=== PATIENT | female | born 1975 | race Caucasian/White ===

== ENCOUNTER 2021-11-20 12:25 | Inpatient (IN) | payer SELFPAY ==
[2021-11-20] VITALS (16 sets, daily range): BP systolic 91–143; BP diastolic 58–89
[~2021-11-20] VITALS: Ht 165.1 cm; Wt 47.9 kg
--- NOTE | 2021-11-20 12:26 | NUR ---
BIBRA81 FROM STREETS, FOUND UNRESPONSIVE, NARCAN 8MG TOTAL GIVEN SUPERVISING BROKER. PLACED ON BED UNRESPONSIVE TO VERBAL AND PAINFUL STIMULI, SATURATING AT 98% WITH 4LIT O2
[2021-11-20] MEDS ORDERED: NALOXONE PREFILLED SYRINGE 2 MG/2 ML SYRINGE ONE (12:32)
--- NOTE | 2021-11-20 12:32 | NUR ---
NARCAN 4MG IV GIVEN- PATIENT STILL NOT RESPONDING TO VERBAL AND PAINFUL STIMULI
--- NOTE | 2021-11-20 12:32 | NUR ---
ACCU CHECK- LOW DEXTROSE 50% 50MLLS IV GIVEN
[2021-11-20] MEDS ORDERED: DEXTROSE 50%-WATER 50 ML DISP.SYRIN ONE ×2 (12:37→14:05)
[2021-11-20] MEDS ORDERED: PROPOFOL 0 ML ONE (12:52)
[2021-11-20] MEDS ORDERED: DEXTROSE 50%-WATER 50 ML DISP.SYRIN IV ONE (13:00)
[2021-11-20] MEDS ORDERED: NALOXONE HCL 0.4 MG/ML AMPUL IV ONE (13:00)
--- NOTE | 2021-11-20 13:00 | NUR ---
STARTED O PROPOFOL INF. AT 5MCG/KG/MIN BP-142/105, WI-66, SATS-100% WILL TITRATE ACCORDINGLY PER RASS.
--- NOTE | 2021-11-20 13:00 | NUR ---
PATIENT INTUBATED BY DR GARDNER WITH ETOMIDATE 15MG AND SUCC. 60MG, ET TUBE 7.0 AT 23LIP. TRANSACTION ADVISORY SERVICES MANAGER AT BEDSIDE ATTACHED TO VENTILATOR WITH SETTING A/C VC FIO2-30, VT-450, RATE-18, PEEP-5 SATURATING AT 100%
--- NOTE | 2021-11-20 13:00 | NUR ---
Jeanna livingston in EDM - 11/20/21 at 1637 by TERESA COMENCED ON PROPOFOL INF. AT 5MCG/KG/MIN BP-142/105
--- NOTE | 2021-11-20 13:15 | NUR ---
X-RAY TECH AT BEDSIDE
--- NOTE | 2021-11-20 13:24 | NUR ---
RT PT CAME IN FOR DRUG OD, AIRWAY PROTECTION INTUBATED BY DR GARDNER 7.0 SECURED AT 23CM PLACED ON [facility] AC 18 450 +5 50% XRAY SHOWS 4CM AWAY FROM MAGDIEL SX THIN SCANT AMOUNT OF SECRETIONS VENT PLUGGED IN RED OUTLET WILL CONT TO MONITOR ABG WILL BE DONE 1 HR POST Addendum: 11/20/21 at 1326 by NICOLE GARCIA RT Amended: Links added.
--- NOTE | 2021-11-20 13:49 | NUR ---
BED ASSIGNED. ICU 258. ADMITTING AWARE.
[2021-11-20 14:08] LABS: BASOPHILS % (AUTO) 0.2 % (0.0-2.0); HEMATOCRIT 41 % (33-45); HEMOGLOBIN 13.3 g/dL (11.5-14.8); LYMPHOCYTES # (AUTO) 0.9 K/uL (0.8-4.8); LYMPHOCYTES % (AUTO) 11.3 % (20.0-44.0); MEAN CORPUSCULAR HGB CONC 33 g/dl (31.0-36.0); MEAN CORPUSCULAR VOLUME 85 fL (82-100); MONOCYTES # (AUTO) 0.4 K/uL (0.1-1.30); MONOCYTES % (AUTO) 4.4 % (2.0-12.0); NEUTROPHILS % (AUTO) 84.1 % (43.0-81.0); PLATELET COUNT (AUTO) 339 K/uL (150-450); RED BLOOD CELL COUNT(AUTO) 4.79 MIL/uL (4.0-5.2); SERUM AMMONIA 19 umol/L (11-32); WHITE BLOOD COUNT (AUTO) 8.3 K/uL (4.3-11.0)
--- NOTE | 2021-11-20 14:09 | NUR ---
ACCU CHECK- 32 DR GARDNER ORDERS ANOTHER DEXTROSE 50% 50MLS GIVEN.
[2021-11-20 14:12] LABS: ABG PCO2 36.6 mmHg (35.0-45.0); ABG PH 7.386 (7.350-7.450); ABG PO2 188.2 mmHg (75.0-100.0); COHb 0.3 % (0.5-1.5); MetHb 0.4 % (0.0-1.5); O2Hb 98.2 % (94.0-97.0); SITE, ABG Right Brachial; VENT MODE, BG AC 18 500 +5 40%
[2021-11-20 14:24] LABS: CALCIUM, SERUM 8.4 mg/dL (8.5-10.1); CARBON DIOXIDE 28 mmol/L (21-32); CHLORIDE 107 mmol/L (98-107); CREATININE 0.6 mg/dL (0.6-1.3); GLUCOSE 104 mg/dL (74-106); POTASSIUM 3.5 mmol/L (3.5-5.1); SODIUM SERUM 144 mmol/L (136-145); UREA NITROGEN, BLOOD 5 mg/dL (7-18)
[2021-11-20 14:29] LABS: ALANINE AMINOTRANSFERASE 33 U/L (12-78); ALBUMIN 3.2 g/dL (3.4-5.0); ALKALINE PHOSPHATASE 70 U/L (46-116); ASPARTATE AMINOTRANSFERASE 24 U/L (15-37); BILIRUBIN,TOTAL 0.2 mg/dL (0.2-1.0); TOTAL PROTEIN, SERUM 6.8 g/dL (6.4-8.2)
[2021-11-20 14:30] LABS: ACETAMINOPHEN 0 ug/ml (10-30); ALCOHOL, BLOOD < 3 mg/dL (0-0)
[2021-11-20] MEDS ORDERED: PROPOFOL 100 ML ONE ×2 (14:30→15:06)
--- NOTE | 2021-11-20 14:35 | NUR ---
CT SCAN OF THE HEAD DONE
[2021-11-20 14:36] LABS: THYROID STIMULATING HORMONE 1.246 uIU/mL (0.358-3.74)
--- NOTE | 2021-11-20 14:45 | NUR ---
PATIENT ADMITTED TO ICU 258 BEDSIDE REPORT GIVEN TO MICHELLE KIM FOR EDMUDNO
[2021-11-20] MEDS ORDERED: IV D5/0.45 NACL 1,000 ML IV ONE (15:30)
[2021-11-20] MEDS ORDERED: PROPOFOL 100 ML IV PRN ×2 (15:30→16:00)
[2021-11-20] MEDS ORDERED: Sodium Chloride 154 MEQ in IV 10% DEXTROSE 1,000 ML IV PRN (15:30)
[2021-11-20] MEDS ORDERED: DEXTROSE 50%-WATER 50 ML DISP.SYRIN IV PRN (16:00)
[2021-11-20] MEDS ORDERED: CEFEPIME 1 GM VIAL IM SCH (16:00)
[2021-11-20] MEDS ORDERED: DEXTROSE 50%-WATER 50 ML DISP.SYRIN IVP ONE ×2 (16:00→17:30)
[2021-11-20] MEDS ORDERED: ETOMIDATE 2 MG/ML VIAL IV ONE ×2 (16:00→17:30)
[2021-11-20] MEDS ORDERED: ONDANSETRON HCL/PF 4 MG/2 ML VIAL IVP PRN (16:00)
[2021-11-20] MEDS ORDERED: BLOOD SUGAR DIAGNOSTIC 1 EACH STRIP IN SCH (16:00)
[2021-11-20] MEDS ORDERED: SUCCINYLCHOLINE CHLORIDE 20 MG/ML VIAL IV ONE ×2 (16:00→17:30)
[2021-11-20] MEDS ORDERED: MAG HYDROX/AL HYDROX/SIMETH 30 ML UDC PO PRN (16:00)
[2021-11-20] MEDS ORDERED: Z GUARD REMEDY 4 OZ OINT TP PRN (16:00)
[2021-11-20] MEDS: IV 10% DEXTROSE 1,000 ML IV PRN (16:15)
[2021-11-20 16:19] LABS: BILIRUBIN,URINE NEGATIVE (NEGATIVE); COLOR,URINE YELLOW (YELLOW); LEUKOCYTE ESTERASE ,URINE NEGATIVE (NEGATIVE); NITRITE, URINE NEGATIVE (NEGATIVE); PH,URINE 5.5 (5.0-8.0); PROTEIN,URINE NEGATIVE (NEGATIVE); UGLUCOSE 100 MG/DL mg/dL (NEGATIVE); UROBILINOGEN,URINE 0.2 EU/dL (0.2)
--- NOTE | 2021-11-20 16:23 | NUR ---
Dextrose 50, Succ, Etomidate given in ER
[2021-11-20] MEDS: PANTOPRAZOLE 40 MG VIAL IV SCH (16:25)
[2021-11-20] MEDS: ENOXAPARIN SODIUM 40 MG/0.4 ML DISP.SYRIN SQ SCH (16:26)
--- NOTE | 2021-11-20 16:32 | NUR ---
Pt Belongings: After emptying pt pockets, Pt has following: - [place] Passport Card ID: name "Rose Carson", however "Photo ID does not look like patient - [employer] - credit card under "Ellen Steen" - visa Commercial - with "no identifying name" - [employer] Card - under name "Rose Carson
[2021-11-20] MEDS: CEFEPIME 1 GM in IV D5W 50 ML IV SCH (17:22)
[2021-11-20] MEDS: DEXTROSE 50%-WATER 50 ML DISP.SYRIN IV PRN ×2 (17:27→21:15)
[2021-11-20] MEDS: BLOOD SUGAR DIAGNOSTIC 1 EACH STRIP IN SCH ×2 (17:30→21:10)
[2021-11-20] MEDS: PROPOFOL 100 ML IV PRN ×2 (20:08→23:37)
--- NOTE | 2021-11-20 22:33 | NUR ---
ICU/RN: NASOGATRIC TUBE PLACED PER MD ORDER. 65cm @ LEFT NARE. VERIFIED PLACEMENT VIA AUSCULTAION BY TWO RNS.
[2021-11-21] VITALS (40 sets, daily range): BP systolic 93–144; BP diastolic 59–92
[2021-11-21] MEDS: BLOOD SUGAR DIAGNOSTIC 1 EACH STRIP IN SCH ×7 (00:55→21:40)
--- NOTE | 2021-11-21 01:00 | NUR ---
ICU/RN: PT NOTED WITH POC GLUCOSE < 10. DEXTROSE 50% ADMINISTERED ORDERED. WILL RE-EVALUATE SHORTLY.
[2021-11-21] MEDS: DEXTROSE 50%-WATER 50 ML DISP.SYRIN IV PRN ×8 (01:01→21:40)
--- NOTE | 2021-11-21 02:00 | NUR ---
ICU/RN: PT POC GLUCOSE KEEPS DROPPING LATEST POC GLUCOSE 30. 1 AMP DEXTROSE 50% WAS GIVEN. DR. DUNLAP MADE AWARE OF SITUATION. NO NEW ORDERS WILL CONTINUE PLAN OF CARE.
[2021-11-21] MEDS: BLOOD SUGAR DIAGNOSTIC 1 EACH STRIP IN PRN ×5 (02:15→22:29)
[2021-11-21] MEDS: IV 10% DEXTROSE 1,000 ML IV PRN ×3 (02:34→19:52)
[2021-11-21] MEDS: PROPOFOL 100 ML IV PRN ×7 (03:06→22:54)
[2021-11-21 04:01] LABS: BASOPHILS % (AUTO) 0.2 % (0.0-2.0); EOSINOPHILS % (AUTO) 0.6 % (0.0-6.0); HEMATOCRIT 39 % (33-45); HEMOGLOBIN 12.5 g/dL (11.5-14.8); LYMPHOCYTES # (AUTO) 1.2 K/uL (0.8-4.8); LYMPHOCYTES % (AUTO) 11.5 % (20.0-44.0); MEAN CORPUSCULAR HGB CONC 32 g/dl (31.0-36.0); MEAN CORPUSCULAR VOLUME 86 fL (82-100); MONOCYTES # (AUTO) 0.6 K/uL (0.1-1.30); MONOCYTES % (AUTO) 5.5 % (2.0-12.0); NEUTROPHILS # (AUTO) 8.9 K/uL (1.8-8.9); NEUTROPHILS % (AUTO) 82.2 % (43.0-81.0); PLATELET COUNT (AUTO) 278 K/uL (150-450); RED BLOOD CELL COUNT(AUTO) 4.49 MIL/uL (4.0-5.2); WHITE BLOOD COUNT (AUTO) 10.8 K/uL (4.3-11.0)
[2021-11-21 04:39] LABS: CALCIUM, SERUM 8.2 mg/dL (8.5-10.1); CREATININE 0.5 mg/dL (0.6-1.3); MAGNESIUM 1.8 mg/dL (1.8-2.4); PHOSPHORUS 3.7 mg/dL (2.5-4.9)
[2021-11-21 04:43] LABS: POTASSIUM 2.4 mmol/L (3.5-5.1)
--- NOTE | 2021-11-21 05:00 | NUR ---
ICU/RN: PT POC GLUCOSE 41. DEXTROSE 50% IVPB BOLUS INFUSING ORDERED.
[2021-11-21 05:06] LABS: THYROID STIMULATING HORMONE 2.478 uIU/mL (0.358-3.74)
--- NOTE | 2021-11-21 05:31 | NUR ---
ICU/RN: CRITICAL POTASSIUM 2.[address] DUNLAP. NEW ORDERS RECIEVED AND CARRIED OUT.
[2021-11-21] MEDS: CEFEPIME 1 GM in IV D5W 50 ML IV SCH ×2 (05:34→18:55)
[2021-11-21] MEDS: POTASSIUM CL. PREMIX PERIPHER. 50 ML IV SCH ×4 (05:46→08:56)
--- NOTE | 2021-11-21 07:10 | NUR ---
IT ASSOCIATE OPENING NOTE: RECEIVED PT. IN BED, SEDATED, RESPONDS TO PAINFUL STIMULI. ON ETT/VENT - 09/16; AC - 18; VT - 450; FIO2 - 30%, PEEP - 5. BREATHING EVEN AND UNLABORED. NO S/S OF RESPIRATORY DISTRESS. ELECTROLESS PLATER READS NSR WITH HR OF 70 BPM. PT. HAS F/C WITH CLEAR YELLOW URINE DRAINING VIA GRAVITY. PT. HAS NG TUBE IN L NARE, TURNED ON TO LOW CONTINUOUS SUCTION ORDERED, WITH CLEAR SECRETIONS. NO GASTRIC RESIDUAL NOTED. SKIN INTACT. IV ACCESS ON L AC #16G WITH DIPRIVAN RUNNING AT 100 MCG/KG/MIN AND D10 RUNNING AT 100 ML/HR; R AC #18G WITH KCL RUNNING AT 50 ML/HR. IV SITE DRESSINGS C/D/I WITH NO S/S OF INFILTRATION. SAFETY MEASURES IN PLACE: BED IN LOWEST AND LOCKED POSITION, SIDE RAILS UP X3, HOB ELEVATED AT 30 DEGREES, BED ALARM ON, WILL TURN AND REPOSITION Q2H. WILL CONTINUE TO MONITOR PT. FOR ANY CHANGES.
[2021-11-21] MEDS: PANTOPRAZOLE 40 MG VIAL IV SCH (09:27)
--- NOTE | 2021-11-21 10:00 | NUR ---
LAUNDRY OPERATOR NOTE: DR. JOHNSTON ORDERED TO INCREASE IV INFUSION OF D10 FROM 100 ML/HR TO 150 ML/HR. WILL ADJUST RATE ORDERED.
--- NOTE | 2021-11-21 10:10 | NUR ---
SHAKER TENDER NOTE: PT. NOTED TO HAVE BG OF <10 MG/DL. CHECKED TWICE AND GOT SAME NUMBER. D50 INJECTION NOT AVAILABLE, PHARMACY GAVE 250ML OF D10 ALTERNATIVE. GIVEN BOLUS. RECHECKED PT. BG AROUND 1000 AND GOT 81 MG/DL. WILL CONTINUE TO MONITOR PT.'S BLOOD GLUCOSE.
[2021-11-21] MEDS ORDERED: ETOMIDATE 2 MG/ML VIAL IV ONE (10:36)
[2021-11-21] MEDS ORDERED: SUCCINYLCHOLINE CHLORIDE 20 MG/ML VIAL IV ONE (10:36)
[2021-11-21] MEDS ORDERED: GLUCAGON,HUMAN RECOMBINANT 1 MG/VIAL VIAL IV ONE ×2 (11:00→11:15)
--- NOTE | 2021-11-21 11:00 | NUR ---
RN CHG ORDER RECEIVED FOR GLUCAGON IV X 2 DOSES 15 MINUTES APART FOR EPISODES OF HYPOGLYCEMIA DESPITE D10W INFUSION.
--- NOTE | 2021-11-21 11:20 | NUR ---
FRANCHISE DEVELOPMENT MANAGER NOTE: PT. NOTED TO HAVE BG OF 35 MG/DL. RECHECKED AND GOT 33 MG/DL. ADMINISTERED GLUCAGON 1MG IV 2X, [address] JOHNSTON'S ORDER. WILL CONTINUE TO MONITOR PT.'S BLOOD GLUCOSE.
--- NOTE | 2021-11-21 13:45 | NUR ---
FUEL CELL BATTERY TECHNICIAN NOTE: PT. NOTED TO HAVE BG OF 35 MG/DL AROUND 1258. RECHECKED AND GOT 29 MG/DL. ADMINISTERED 250ML OF D10 ALTERNATIVE TO D50 INJECTION. GIVEN BOLUS. RECHECKED PT. BG AROUND 1341 AND GOT 133 MG/DL. WILL CONTINUE TO MONITOR PT.'S BLOOD GLUCOSE.
--- NOTE | 2021-11-21 14:29 | NUR ---
SS consult requested for finding out their identity, responsible republican and for possible homelessness. The pt. is a 46 year old female who was brought in by rescue ambulance after being found unresponsive. Per EMR, pt. was administered Narcan. SW called ICU and was notified that the pt. is still sedated and intubated. SW will follow up to interview pt. when she has woken up and is able to engage in conversation.
[2021-11-21 14:50] LABS: CREATININE 0.5 mg/dL (0.6-1.3)
[2021-11-21] MEDS: JEVITY 1.2 CAL 1,000 ML BOTTLE GT PRN (15:38)
[2021-11-21] MEDS ORDERED: POTASSIUM CHLORIDE 20 MEQ POWDER PACKET GT ONE ×4 (16:00→17:30)
--- NOTE | 2021-11-21 16:00 | NUR ---
EARLY EDUCATION TEACHER NOTE: PT. SLID DOWN THE BED AND REMOVED NG TUBE IN SPITE OF SEDATION AND BILATERAL WRIST RESTRAINTS. RE-INSERTED NEW NG TUBE. X-RAY CONFIRMED PLACEMENT BUT RECOMMENDED TO ADVANCE NG TUBE 5-8 CM MORE. DID THE ADJUSTMENT AND IS NOW AT 65 CM AT THE TIP OF L NARE. DOUBLE CHECKED PLACEMENT BY AUSCULCATION OF INJECTED AIR. DR. LARSEN ALSO ORDERED TO START JEVITY 1.2 STARTING AT 20ML/HR VIA NG TUBE. ADMINISTERED ORDERED. NO GASTRIC RESIDUAL NOTED. WILL CONTINUE TO MONITOR PT.'S BLOOD GLUCOSE AND RISK FOR ASPIRATION.
[2021-11-21] MEDS ORDERED: FENTANYL CITRAT IV 2,500 MCG in IV NS 0.9% 200 ML IV PRN (17:00)
[2021-11-21] MEDS: ENOXAPARIN SODIUM 40 MG/0.4 ML DISP.SYRIN SQ SCH (17:30)
--- NOTE | 2021-11-21 19:00 | NUR ---
MOTOR SETTER NOTE: PT. NOTED TO HAVE BG OF 23 MG/DL. RECHECKED AND GOT 27 MG/DL. ADMINISTERED 250ML OF D10 ALTERNATIVE TO D50 INJ. GIVEN BOLUS. RECHECKED PT. BG AROUND 1846 AND GOT 57 MG/DL. RECHECKED AND GOT 50 MG/DL. WILL ADMINISTER ANOTHER DOSE OF 250 ML D10 AND WILL CONTINUE TO MONITOR PT.'S BG.
--- NOTE | 2021-11-21 19:15 | NUR ---
MANAGER WORK CLOSING NOTE: PT. REMAINS IN BED, SEDATED, RESPONDS TO PAINFUL STIMULI. ON ETT/VENT - 09/16; AC - 18; VT - 450; FIO2 - 30%, PEEP - 5. BREATHING EVEN AND UNLABORED. NO S/S OF RESPIRATORY DISTRESS. CLINICAL GENETICIST READS NSR WITH HR OF 81 BPM. PT. HAS F/C WITH CLEAR YELLOW URINE, TOTAL OUTPUT OF 2850 ML THIS SHIFT. PT. HAS NG TUBE IN L NARE, WITH JEVITY RUNNING AT 20 ML/HR. NO GASTRIC RESIDUAL NOTED. SKIN INTACT. IV ACCESS ON L AC #16G WITH DIPRIVAN RUNNING AT 100 MCG/KG/MIN AND D10 RUNNING AT 150 ML/HR; R AC #18G WITH D10 RUNNING BOLUS TO INCREASE BG. IV SITE DRESSINGS C/D/I WITH NO S/S OF INFILTRATION. SAFETY MEASURES MAINTAINED: BED IN LOWEST AND LOCKED POSITION, SIDE RAILS UP X3, HOB ELEVATED AT 30 DEGREES, BED ALARM ON, TURNED AND REPOSITIONED Q2H. WILL ENDORSE CONTINUITY OF CARE TO ASSOCIATE PROFESSOR OF SURGERY RN.
--- NOTE | 2021-11-21 19:40 | NUR ---
RN NOTES RECEIVED CARE OF PATIENT FROM AM SHIFT NURSE WHILE PATIENT IN BED, SEDATED, RESPONDS TO PAINFUL STIMULI. PATIENT IS INTUBATED UNDER MECHANICAL VENTILATION WITH ORDERED SETTINGS, TOLERATING WELL, NO SOB NOTED, O2 SAT 100%. PATIENT IS RUNNING WITH DIPRIVAN DRIP AT 100 MCG/KG/MIN AND D10 AT 150 ML/HR. JEVITY RUNNING VIA NGT AT 20 ML/HR, NO RESIDUAL NOTED, WILL INCREASE RATE TOLERATED. SAFETY MEASURES IMPLEMENTED PER HOSPITAL PROTOCOLS. WILL CARRY OUT PLAN OF CARE.
[2021-11-21 22:16] LABS: CALCIUM, SERUM 9.1 mg/dL (8.5-10.1); CREATININE 0.5 mg/dL (0.6-1.3)
[2021-11-22] VITALS (41 sets, daily range): BP systolic 92–145; BP diastolic 60–90
[2021-11-22] MEDS: BLOOD SUGAR DIAGNOSTIC 1 EACH STRIP IN SCH ×6 (01:03→21:32)
[2021-11-22] MEDS: DEXTROSE 50%-WATER 50 ML DISP.SYRIN IV PRN ×2 (01:03→13:13)
[2021-11-22] MEDS: BLOOD SUGAR DIAGNOSTIC 1 EACH STRIP IN PRN ×2 (02:00→18:38)
[2021-11-22] MEDS: IV 10% DEXTROSE 1,000 ML IV PRN ×4 (02:13→23:35)
[2021-11-22] MEDS: PROPOFOL 100 ML IV PRN ×6 (02:13→23:35)
[2021-11-22 04:22] LABS: BASOPHILS % (AUTO) 0.3 % (0.0-2.0); EOSINOPHILS % (AUTO) 0.9 % (0.0-6.0); HEMATOCRIT 39 % (33-45); HEMOGLOBIN 12.8 g/dL (11.5-14.8); LYMPHOCYTES # (AUTO) 1.4 K/uL (0.8-4.8); LYMPHOCYTES % (AUTO) 14.9 % (20.0-44.0); MEAN CORPUSCULAR HGB CONC 33 g/dl (31.0-36.0); MEAN CORPUSCULAR VOLUME 85 fL (82-100); MONOCYTES # (AUTO) 0.7 K/uL (0.1-1.30); MONOCYTES % (AUTO) 7.5 % (2.0-12.0); NEUTROPHILS # (AUTO) 7.2 K/uL (1.8-8.9); NEUTROPHILS % (AUTO) 76.4 % (43.0-81.0); PLATELET COUNT (AUTO) 287 K/uL (150-450); WHITE BLOOD COUNT (AUTO) 9.5 K/uL (4.3-11.0)
[2021-11-22 04:42] LABS: CALCIUM, SERUM 8.5 mg/dL (8.5-10.1); CREATININE 0.6 mg/dL (0.6-1.3); POTASSIUM 3.4 mmol/L (3.5-5.1)
[2021-11-22] MEDS: CEFEPIME 1 GM in IV D5W 50 ML IV SCH ×2 (06:18→18:01)
--- NOTE | 2021-11-22 07:30 | NUR ---
RN NOTES ENDORSED CARE OF PATIENT TO AM SHIFT NURSE. NO SIGNIFICANT CHANGES OR FINDINGS TO PATIENT'S CONDITION. PLAN OF CARE CARRIED OUT, ALL DUE MEDS GIVEN. ENDORSED CARE OF PATIENT TO AM SHIFT NUR4SE FOR CONTINUITY OF CARE.
--- NOTE | 2021-11-22 07:35 | NUR ---
RN NOTES PT FOUND SEMI FOWLERS DISPLAYING NO S/S OF DISTRESS, FLACC = 0, RIKERS = 2 AND BILATERAL RISE AND FALL OF THE CHEST OBSERVED. TF ONGOING VIA NGT. R AC 18G AND L AC 16G IV ARE PATIENT AND INTACT. ARRIOLA CATH RESERVOIR BELOW PATIENT DRAINING BY GRAVITY. BILATERAL SOFT WRISTS APPLIED, PULSES PALPATED AND CAP REFILL < 3 SECONDS BILATERALLY. RN WILL CONTINUE CARE PLAN AND ANTICIPATE NEEDS. SAFETY MEASURES IN PLACE, BED LOCKED AND IN LOWEST POSITION, SIDE RAILS UPX2, CALL LIGHT WITHIN REACH, BED ALARM ARMED.
[2021-11-22] MEDS: PANTOPRAZOLE 40 MG VIAL IV SCH (09:28)
[2021-11-22] MEDS ORDERED: POTASSIUM CHLORIDE 20 MEQ POWDER PACKET NG SCH (11:00)
[2021-11-22 13:06] LABS: *C PEPTIDE 0.2 ng/mL (1.1-4.4); *INSULIN 86.4 uIU/mL (2.6-24.9)
[2021-11-22] MEDS: JEVITY 1.2 CAL 1,000 ML BOTTLE GT PRN (13:35)
--- NOTE | 2021-11-22 15:19 | NUR ---
SS NOTE: ss consult requested for finding out their identity, responsible green party and for possible homelessness. The pt. remains intubated and unable to be interviewed per EMR. SW called and spoke to the pt.'s nurse who stated that the pt. has no identifying information/belongings on her person upon admission only clothing, necklaces x 2 and a watch. SW will be available as needed.
[2021-11-22] MEDS: ENOXAPARIN SODIUM 40 MG/0.4 ML DISP.SYRIN SQ SCH (16:07)
--- NOTE | 2021-11-22 16:33 | NUR ---
SW was notified that pt. has credit card on her person with a name(Ellen Murdock). SW called missing person unit [phone] and left voicemail with possible identifying information to see if anyone has reported this person missing. BARBARA also left SW call back number. SW will follow up as needed. Pt. has tattoos on left and right forearms, lower abdomen and top of left foot.
--- NOTE | 2021-11-22 19:05 | NUR ---
CIRCULATION ASSISTANT. INITIAL ASSESSMENT. RECEIVED THE PT REST IN BED. ORALLY INTUBATED. SEDATED WITH PROPOFOL. ETT #7, LIP 23CMS, AC 18,TV 450, FIO2 30%,PEEP 5. SAT 98%. NO ACUTE DISTRESS NOTED. ORACLE SOFTWARE ENGINEER SHOWING NSR. IV RT AND LT HAND PIV. PROPOFOL 50 ML/H, IVF D10 @ 150 ML/H. NGT INTACT. JEVITY 60 ML/H. FC PATENT. ROSAMARIA SOFT WRIST RESTRAINT CHECKED AND RELEASED. NO INJURY OR REDNESS NOTED. WILL CONTINUE TO MONITOR VITALS.
--- NOTE | 2021-11-22 19:15 | NUR ---
RN NOTES PT FOUND SEMI FOWLERS DISPLAYING NO S/S OF DISTRESS, FLACC = 0, RIKERS = 3 AND BILATERAL RISE AND FALL OF THE CHEST OBSERVED. TF ONGOING VIA NGT. R AC 18G AND L AC 16G IV ARE PATIENT AND INTACT. ARRIOLA CATH RESERVOIR BELOW PATIENT DRAINING BY GRAVITY. BILATERAL SOFT WRISTS APPLIED, PULSES PALPATED AND CAP REFILL < 3 SECONDS BILATERALLY. SBAR AND REPORT GIVEN TO OPTOMECHANICAL ENGINEER RN, ALL QUESTIONS ANSWERED. SAFETY MEASURES IN PLACE, BED LOCKED AND IN LOWEST POSITION, SIDE RAILS UPX2, CALL LIGHT WITHIN REACH, BED ALARM ARMED. PT ENDORSED FOR EDMUNDO.
--- NOTE | 2021-11-22 20:20 | NUR ---
BEAD PICKER. PT IS AGITATED PROPOFOL INCREASED PER PROTOCOL.
[2021-11-23] VITALS (47 sets, daily range): BP systolic 84–140; BP diastolic 46–95
[2021-11-23] MEDS: BLOOD SUGAR DIAGNOSTIC 1 EACH STRIP IN SCH ×6 (01:31→21:19)
[2021-11-23] MEDS: PROPOFOL 100 ML IV PRN ×2 (02:56→07:15)
--- NOTE | 2021-11-23 03:50 | NUR ---
INSPECTOR SET UP AND LAY OUT. AM CARE GIVEN. REMAINING SAME VENT SETTINGS TOLERATED WELL. SAT 98%. NO ACUTE DISTRESS NOTED. TRANSFER COORDINATOR SHOWING NSR. IV RT AND LT HAND. PROPOFOL 80 MCG/KG/MIN. HOB ELEVATED, NGT FEEDING TOLERATED WELL. FC PATENT URINE DRAINING. TURN AND REPOSITION Q2H. WILL CONTINUE TO MONITOR VITALS.
[2021-11-23 04:23] LABS: BASOPHILS % (AUTO) 0.5 % (0.0-2.0); EOSINOPHILS % (AUTO) 1.6 % (0.0-6.0); HEMATOCRIT 37 % (33-45); HEMOGLOBIN 11.8 g/dL (11.5-14.8); LYMPHOCYTES # (AUTO) 1.5 K/uL (0.8-4.8); LYMPHOCYTES % (AUTO) 20.9 % (20.0-44.0); MEAN CORPUSCULAR HGB CONC 32 g/dl (31.0-36.0); MEAN CORPUSCULAR VOLUME 88 fL (82-100); MONOCYTES # (AUTO) 0.5 K/uL (0.1-1.30); MONOCYTES % (AUTO) 6.9 % (2.0-12.0); NEUTROPHILS # (AUTO) 5.1 K/uL (1.8-8.9); NEUTROPHILS % (AUTO) 70.1 % (43.0-81.0); PLATELET COUNT (AUTO) 253 K/uL (150-450); RED BLOOD CELL COUNT(AUTO) 4.14 MIL/uL (4.0-5.2); WHITE BLOOD COUNT (AUTO) 7.3 K/uL (4.3-11.0)
[2021-11-23] MEDS: IV 10% DEXTROSE 1,000 ML IV PRN (05:48)
[2021-11-23] MEDS: CEFEPIME 1 GM in IV D5W 50 ML IV SCH ×2 (05:48→17:08)
--- NOTE | 2021-11-23 07:00 | NUR ---
RN NOTES RECEIVED PT ON BED, ORALLY INTUBATED. SEDATED WITH PROPOFOL. ETT #7, LIP 23CMS, AC 18,TV 450, FIO2 30%,PEEP 5. SAT 98%. NO ACUTE DISTRESS NOTED. HEAD UP OPERATOR SHOWING NSR. IV SITES CDI, PROPOFOL 60 MCG/KG/MIN RUNNING , IVF D10 @ 150 ML/H. NGT INTACT. JEVITY 60 ML/H. NO RESIDUAL NOTED FC PATENT. DRAINING TO GRAVITY , ROSAMARIA. SOFT WRIST RESTRAINT CHECKED AND RELEASED. NO INJURY OR REDNESS NOTED. SR UP x3, CALL LIGHT WITHIN EASY REACH, WILL CONTINUE TO MONITOR .
[2021-11-23 07:02] LABS: CREATININE 0.5 mg/dL (0.6-1.3); POTASSIUM 3.9 mmol/L (3.5-5.1)
--- NOTE | 2021-11-23 08:25 | NUR ---
vent changes below for weaning trial per dr. malloy: simv 4 ps 15 30% fio2 rn aware on weaning trial. Addendum: 11/23/21 at 0827 by JAYDA GARCIA RT Amended: Links added.
[2021-11-23] MEDS: PANTOPRAZOLE 40 MG/PACK PACK NG SCH (08:34)
[2021-11-23 08:55] LABS: ABG BASE EXCESS 2.1 mmol/L; ABG PCO2 40.6 mmHg (35.0-45.0); ABG PH 7.433 (7.350-7.450); ABG PO2 109.6 mmHg (75.0-100.0); AaDO2 56.6 mmHg; COHb 0.4 % (0.5-1.5); MetHb 0.3 % (0.0-1.5); O2Hb 97.3 % (94.0-97.0); PEEP,BG 5 cm H2O; SITE, ABG Right Radial; VT, ABG 450 mL
--- NOTE | 2021-11-23 09:25 | NUR ---
pt is awake and responds to simple question extubated @ 09 and placed into nasal cannula @ 2 lpm o2 flow. rn @ bedside Addendum: 11/23/21 at 09 by JAYDA GARCIA RT Amended: Links added.
--- NOTE | 2021-11-23 09:25 | NUR ---
RN NOTES PT EXTUBATED PER DR JOHNSTON ORDER , PT IS FOLLOWING SIMPLE COMMAND , MOANS AT TIMES, DOES NOT VERBALLY RESPONDING , ON 2L O2 N/C , CONTINUE TO MONITOR.
[2021-11-23] MEDS: IV D5/ 0.9% NACL 1,000 ML IV PRN ×2 (10:38→17:18)
--- NOTE | 2021-11-23 12:00 | NUR ---
RN NOTES PT REFUSED TO EAT LUNCH , MORE ALERT , CONFUSED, MUMBLES AT TIMES, CONTINUE TO MONITOR.
--- NOTE | 2021-11-23 14:19 | NUR ---
Manager Laundry Note BARBARA contacted missing persons unit [phone] and spoke with Officer Lyric in effort to possibly help identify the pt. BARBARA informed the officer of the available information and found a possible match but could not confirm that the patient was reported missing. Officejalen Gunter requested a picture of the pt. in effort to identify her. BARBARA spoke with the ICU nurse to obtain pictures, the nurse informed BARBARA that the patient is now responsive and requested SW to gain consent from pt. to obtain picture. BARBARA went to the ICU unit to meet with the pt. but pt. was asleep. BARBARA attempted to wake up pt. but she was unresponsive and was unable to speak with her. BARBARA will follow up again. BARBARA will email Officer Lyric information once BARBARA obtains consent from pt. so he can continue to help identify pt.
[2021-11-23] MEDS: ENOXAPARIN SODIUM 40 MG/0.4 ML DISP.SYRIN SQ SCH (16:22)
--- NOTE | 2021-11-23 17:00 | NUR ---
RN NOTES PT ON RA, O2 SAT WNL , CONTINUE TO MONITOR .
--- NOTE | 2021-11-23 18:51 | NUR ---
RN NOTES PT REMAINS ON RA, REFUSED TO EAT, CONFUSED, NON VERBAL , IVF AT 150CC/HR RUNNING , VSS STABLE, WILL ENDORSE TO FIELD CHECKER NURSE FOR CONTINUITY OF CARE .
--- NOTE | 2021-11-23 19:51 | NUR ---
SOCIAL AND HUMAN SERVICES ASSISTANT. INITIAL ASSESSMENT. RECEIVED THE PT REST IN BED. AWAKE, ALERT LETHARGIC. FOLLOW COMMANDS. LETHARGIC.PT IS ROOM AIR. SAT 98%. NO ACUTE DISTRESS NOTED. ENVIRONMENTAL GEOLOGIST SHOWING NSR. IV RT AND LT HAND. IVF D5NS @ 150 ML/H. FC PATENT. URINE DRAINING. WILL CONTINUE TO MONITOR VITALS.
[2021-11-24] VITALS (20 sets, daily range): BP systolic 87–120; BP diastolic 42–84
[2021-11-24] MEDS: BLOOD SUGAR DIAGNOSTIC 1 EACH STRIP IN SCH ×6 (01:28→20:33)
[2021-11-24 04:15] LABS: BASOPHILS % (AUTO) 0.6 % (0.0-2.0); EOSINOPHILS % (AUTO) 4.3 % (0.0-6.0); HEMATOCRIT 33 % (33-45); HEMOGLOBIN 11.1 g/dL (11.5-14.8); LYMPHOCYTES # (AUTO) 1.6 K/uL (0.8-4.8); LYMPHOCYTES % (AUTO) 31.6 % (20.0-44.0); MEAN CORPUSCULAR HGB CONC 34 g/dl (31.0-36.0); MEAN CORPUSCULAR VOLUME 85 fL (82-100); MONOCYTES # (AUTO) 0.4 K/uL (0.1-1.30); MONOCYTES % (AUTO) 8.9 % (2.0-12.0); NEUTROPHILS # (AUTO) 2.7 K/uL (1.8-8.9); NEUTROPHILS % (AUTO) 54.6 % (43.0-81.0); PLATELET COUNT (AUTO) 243 K/uL (150-450); RED BLOOD CELL COUNT(AUTO) 3.91 MIL/uL (4.0-5.2)
[2021-11-24 04:56] LABS: CREATININE 0.5 mg/dL (0.6-1.3); POTASSIUM 4.3 mmol/L (3.5-5.1)
--- NOTE | 2021-11-24 05:29 | NUR ---
pedicurist. promise given remaining same ivf running. hob elevated pt is room air. sat 98%. no acute distress noted, sessions clerk showing nsr,will continue to monitor vitals.
[2021-11-24] MEDS: IV D5/ 0.9% NACL 1,000 ML IV PRN ×3 (06:35→21:36)
[2021-11-24] MEDS: CEFEPIME 1 GM in IV D5W 50 ML IV SCH ×2 (06:45→17:45)
--- NOTE | 2021-11-24 07:20 | NUR ---
RN OPENING NOTE PATIENT IS IN BED ASLEEP BUT EASILY AROUSABLE, ALERT, ORIENTED X 2. TOLERATES ROOM AIR, BREATHING UNLABORED AND NOT IN ANY FORM OF DISTRESS. SINUS RHYTHM ON CORE SUCKER. ARRIOLA CATHETER INTACT AND DRAINING TO A CLEAR YELLOW URINE. RIGHT ANTECUBITAL INTACT AND PATENT. LEFT ANTECUBITAL IV LINE INTACT AND INFUSING WITH D5NS AT 100 ML/HR. ALL HOSPITAL SAFETY MEASURES IN PLACE. BED IS LOCKED IN LOWEST POSITION, 3 SIDE RAILS UP, CALL LIGHT WITHIN REACH. WILL CONTINUE TO MONITOR THROUGHOUT SHIFT. Addendum: 11/24/21 at 0920 by PIERRE LOUIS RN IV INFUSING WITH D5NS AT 150 ML/HR. Addendum: 11/24/21 at 0948 by PIERRE LOUIS RN IV ON LEFT WRIST NOT ANTECUBITAL.
[2021-11-24] MEDS: PANTOPRAZOLE 40 MG/PACK PACK NG SCH (09:00)
--- NOTE | 2021-11-24 09:48 | NUR ---
RN NOTE RIGHT ANTECUBITAL IV DISLODGED. IV SITE COVERED WITH DRY DRESSING. IV CANNULA TIP INTACT.
--- NOTE | 2021-11-24 15:47 | NUR ---
RN CLOSING NOTE PATIENT IS TRANSFERRED TO ROOM 109 VIA WHEEL CHAIR IN STABLE CONDITION, BREATHING UNLABORED AND NOT IN ANY FORM OF DISTRESS. ABLE TO MAKE NEEDS KNOWN AND ABLE TO AMBULATE WITH ASSISTANCE. REPORT GIVEN TO JUDY BYRD FOR CONTINUITY OF CARE.
--- NOTE | 2021-11-24 15:48 | NUR ---
MIS MANAGER NOTES: RECEIVED PT FROM ICU AWAKE ALERT AND VERBALLY RESPONSIVE, ON ROOM AIR O2 SAT 93%.DENIED ANY PAIN OR DISCOMFORT, ON IV D5 1/2 NS AT 150 CC/HR,IV LEFT HAND G22 AND RIGHT FA GAUGE 20 PATENT AND INTACT AND FLUSHED WELL.FC DRAINING YELLOW CLEAR URINE.SAFETY MEASURES RENDERED. MAINTAINED BED IN LOW AND LOCKED POSITION, SIDE RAILS UP. WILL MONITOR
[2021-11-24] MEDS: ENOXAPARIN SODIUM 40 MG/0.4 ML DISP.SYRIN SQ SCH (16:44)
--- NOTE | 2021-11-24 19:20 | NUR ---
RN NOTE Patient in bed, AO x 2-3, in no acute distress, saturation at 100% on room air, HR is 82. IV line at RFA 20g and L wrist 22g patent and flushing well with D5NS infusing at 150 ml/hr. Anand catheter draining to a clear yellow output. Safety measures in place, bed is locked and at lowest position, bed alarm is on, side rails up x 2, call light within reach of patient. Will cont to monitor and reassess. Addendum: 11/25/21 at 0237 by HEATHER LONG RN Patient stated her name is "Della Novak"
--- NOTE | 2021-11-24 19:28 | NUR ---
LOGGING SHOVEL OPERATOR CLOSING NOTES: PT IN BED AWAKE , ALERT AND ORIENTED, BREATHING UNLABORED AND NOT IN ANY FORM OF DISTRESS. ABLE TO MAKE NEEDS KNOWN AND ABLE TO AMBULATE WITH ASSISTANCE.CONTINUE IV FLUID ORDERED,ARRIOLA CATHETER PATENT DRAINING YELLOW CLEAR URINE.BED REMAIN IN LOW AND LOCKED POSITION REPORT GIVEN TO DIESEL ENGINE OPERATOR RN FOR CONTINUITY OF CARE.
[2021-11-25] VITALS: BP 110/74
[2021-11-25] MEDS: BLOOD SUGAR DIAGNOSTIC 1 EACH STRIP IN SCH ×6 (00:47→21:43)
[2021-11-25 04:00] VITALS: BP 103/60
[2021-11-25] MEDS: CEFEPIME 1 GM in IV D5W 50 ML IV SCH ×3 (05:23→21:37)
[2021-11-25] MEDS: IV D5/ 0.9% NACL 1,000 ML IV PRN ×2 (05:28→14:32)
[2021-11-25 08:00] VITALS: BP 96/65
--- NOTE | 2021-11-25 08:15 | NUR ---
RN OPENING NOTE PATIENT RECEIVED IN BED, AO X 4, ABLE TO RESPONDS ALL STIMULI. IN NO ACUTE DISTRESS NOTED. RESPIRATORY EVEN AND UNLABORED ON ROOM AIR. SKIN IS WARM TO TOUCH, KEEP CLEAN/DRY. KEPT ELEVATED HOB FOR ENSURE AIRWAY AND ASPIRATION PRECAUTION, ALSO LOWEST POSITION OF THE BED, S/R UP X 2, BED ALARM IS ON AT ALL THE TIMES. ALL SAFETY PRECAUTION APPLIED. CALL LIGHT WITHIN REACH, WILL CONTINUE TO MONITOR.
[2021-11-25] MEDS: PANTOPRAZOLE 40 MG/PACK PACK NG SCH (08:28)
[2021-11-25 12:00] VITALS: BP 98/66
[2021-11-25 16:00] VITALS: BP 92/49
[2021-11-25] MEDS: ENOXAPARIN SODIUM 40 MG/0.4 ML DISP.SYRIN SQ SCH (16:28)
[2021-11-25] MEDS: GLUCERNA SHAKE 237 ML CAN PO SCH (17:00)
--- NOTE | 2021-11-25 18:49 | NUR ---
RN CLOSING NOTE PATIENT IN BED RESTING. IN NO ACUTE DISTRESS NOTED. RESPIRATORY EVEN AND UNLABORED ON ROOM AIR. SKIN IS WARM TO TOUCH, KEEP CLEAN/DRY, INTACT IV LINE. KEPT ELEVATED HOB FOR ENSURE AIRWAY AND ASPIRATION PRECAUTION. BED IN LOWEST POSITION AND LOCKED. BED ALARM IS ON AT ALL THE TIMES. ALL SAFETY MEASURED IN PLACED. CALL LIGHT WITHIN REACH, WILL ENDORSED TO NEXT SHIFT.
--- NOTE | 2021-11-25 19:30 | NUR ---
RN NOTE Patient in bed, AO x 2-3, when asked of her full name, she said it is "Yolanda Novak " in no acute distress, saturation at 98% on room air, HR is 79. IV line at RFA 20g and L wrist 22g patent and flushing well with D5NS infusing at 150 ml/hr. Anand catheter draining to a clear yellow output. Safety measures in place, bed is locked and at lowest position, bed alarm is on, side rails up x 2, call light within reach of patient. Will cont to monitor and reassess.
[2021-11-25 20:00] VITALS: BP 98/47
[2021-11-26] VITALS: BP 94/44
[2021-11-26] MEDS: BLOOD SUGAR DIAGNOSTIC 1 EACH STRIP IN SCH ×6 (01:30→21:10)
[2021-11-26] MEDS: IV D5/ 0.9% NACL 1,000 ML IV PRN ×3 (01:30→18:52)
[2021-11-26 04:00] VITALS: BP 97/64
[2021-11-26] MEDS: CEFEPIME 1 GM in IV D5W 50 ML IV SCH ×3 (04:14→21:08)
--- NOTE | 2021-11-26 07:35 | NUR ---
RN OPENING NOTE Patient in bed, asleep but easily asrousable. in no acute distress, saturation at 98% on room air, HR is 79. IV line at RFA 20g and L wrist 22g patent and flushing well with D5NS infusing at 150 ml/hr. Anand catheter draining to a clear yellow output. Safety measures in place, bed is locked and at lowest position, bed alarm is on, side rails up x 2, call light within reach of patient. Will continue plan of care and anticipate needs.
[2021-11-26 08:00] VITALS: BP 115/73
[2021-11-26] MEDS: GLUCERNA SHAKE 237 ML CAN PO SCH ×2 (08:46→17:32)
[2021-11-26] MEDS: PANTOPRAZOLE 40 MG/PACK PACK NG SCH (08:47)
[2021-11-26 12:00] VITALS: BP 115/73
[2021-11-26 16:00] VITALS: BP 103/62
--- NOTE | 2021-11-26 18:47 | NUR ---
RN CLOSING NOTE Patient in bed, asleep but easily asrousable. in no acute distress, saturation at 99% on room air. IV line at RFA 20g and L wrist 22g patent and flushing well with D5NS infusing at 150 ml/hr. Anand catheter draining to a clear yellow output. Safety measures in place, bed is locked and at lowest position, bed alarm is on, side rails up x 2, call light within reach of patient. Will endorse to nightshift for continuation of care.
--- NOTE | 2021-11-26 19:45 | NUR ---
CLINICAL SCIENCE CONSULTANT OPENING NOTE RECEIVED PATIENT IN BED, A/O X 3, ABLE TO MAKE NEEDS KNOWN, IN NO S/SX OF ACUTE DISTRESS AT THIS TIME. ON ROOM AIR TOLERATING WELL, RESPIRATORY EVEN AND UNLABORED. SKIN IS WARM TO TOUCH, KEPT HOB ELEVATED FOR MAX LUNG EXPANSION, ASPIRATION PRECAUTION, IV ACCESS ON RFA #20G INTACT AND PATENT RUNNING D5NS AT 150 ML/HR. SAFETY MEASURES IN PLACED, BED IN LOWEST AND LOCKED POSITION, S/R UP X 2, BED ALARM ON. CALL LIGHT WITHIN REACH, WILL CONTINUE TO MONITOR. Addendum: 11/27/21 at 0635 by MOE CANTOR RN MS RN OPENING NOTE
[2021-11-26 20:00] VITALS: BP 98/48
--- NOTE | 2021-11-26 21:00 | NUR ---
RN NOTE BS CHECKED AT 108 MG/DL, NO COVERAGE GIVEN PER SLIDING SCALE, WILL CONT TO MONITOR.
--- NOTE | 2021-11-27 00:46 | NUR ---
RN NOTE BS CHECKED AT 89 MG/DL, NO COVERAGE GIVEN PER SLIDING SCALE, SNACKS PROVIDED TO PT AT BEDSIDE, WILL CONT TO MONITOR.
[2021-11-27] MEDS: BLOOD SUGAR DIAGNOSTIC 1 EACH STRIP IN SCH ×4 (00:48→11:43)
[2021-11-27 04:00] VITALS: BP 95/60
[2021-11-27] MEDS: CEFEPIME 1 GM in IV D5W 50 ML IV SCH ×2 (04:11→12:08)
[2021-11-27] MEDS: IV D5/ 0.9% NACL 1,000 ML IV PRN (04:12)
--- NOTE | 2021-11-27 06:00 | NUR ---
RN NOTE BS CHECKED AT 70 MG/DL, NO COVERAGE GIVEN PER SLIDING SCALE, SNACKS PROVIDED TO PT, WILL CONT TO MONITOR.
--- NOTE | 2021-11-27 06:32 | NUR ---
METAL WORKER CLOSING NOTE PATIENT REMAINS IN BED, A/O X 3, ABLE TO MAKE NEEDS KNOWN, NO S/SX OF ACUTE DISTRESS AT THIS TIME. PT DENIES PAIN, ON ROOM AIR TOLERATING WELL, RESPIRATORY EVEN AND UNLABORED. SKIN IS DRY AND WARM TO TOUCH, IV ACCESS ON RFA #20G INTACT AND PATENT RUNNING D5NS AT 150 ML/HR. ALL DUE MEDS GIVEN , KEPT DRY AND CLEAN, SAFETY MEASURES IN PLACED, BED IN LOWEST AND LOCKED POSITION, S/R UP X 2, BED ALARM ON. CALL LIGHT WITHIN REACH, WILL ENDORSE TO AM SHIFT NURSE FOR CONTINUITY OF CARE. Addendum: 11/27/21 at 0634 by MOE CANTOR RN MS RN CLOSING NOTE
--- NOTE | 2021-11-27 07:33 | NUR ---
TELE RNOPEN NOTE NOTE PATIENT REMAINS IN BED, A/O X 3, ABLE TO MAKE NEEDS KNOWN, NO S/SX OF ACUTE DISTRESS AT THIS TIME. PT DENIES PAIN, ON ROOM AIR TOLERATING WELL, RESPIRATORY EVEN AND UNLABORED. SKIN IS DRY AND WARM TO TOUCH, IV ACCESS ON RFA #20G INTACT AND PATENT RUNNING D5NS AT 150 ML/HR. ALL DUE MEDS GIVEN , KEPT DRY AND CLEAN, SAFETY MEASURES IN PLACED, BED IN LOWEST AND LOCKED POSITION, S/R UP X 2, BED ALARM ON. CALL LIGHT WITHIN REACH, WILL ENDORSE TO AM SHIFT NURSE FOR CONTINUITY OF CARE.
[2021-11-27] MEDS: GLUCERNA SHAKE 237 ML CAN PO SCH (07:56)
[2021-11-27] MEDS: PANTOPRAZOLE 40 MG/PACK PACK NG SCH (08:06)
--- NOTE | 2021-11-27 09:55 | NUR ---
RN NOTES PATIENT ALERT AND RESPONSIVE. BLOOD SUGAR CHECK= 93MG/DL, NO INSULIN COVERAGE. PATIENT HAD BREAKFAST TOLERATED WELL. RFA IV LINE PATENT AND INTACT. BED IN LOWEST POSITION. SAFETY MEASURES IN PLACED. CALL LIGHT WITHIN REACH. WILL CONTINUE TO MONITOR.
[2021-11-27] MEDS ORDERED: AMOX-430 PO (11:02)
[2021-11-27 12:00] VITALS: BP 104/60
--- NOTE | 2021-11-27 12:20 | NUR ---
Councilman Consult BARBARA consult was requested for pt. who was brought by EMS for altered mental status who was found on the street. Pt. is a 46 y.o. female who was admitted after she was found unresponsive by a bystander who called 911. BARBARA met with pt. at bedside. The pt. appears disheveled and is alert and orientated x4. Pt. made eye contact and remained calm and cooperative throughout assessment. The patient had friendly mood and labile affect. Pt. was previously unidentified and checked in as Shanae Mayberry but was able to self-identify as Della Novak and her is 05/01/1978. BARBARA assessed for SI/ HI (suicidal/ homicidal ideation) in which pt. denied any plans, means, or intent. During assessment, pt. stated she will be returning to where she was found, which is where her car is. Pt. stated that she will be returning to her home in [place]. Pt. stated she is independent with ambulation. Pt. did not want to disclose information about use of drugs and verbalized she was upset about it. Pt. expressed frustration with staff because they could not find some of her belongings (i.e. bra and tank top). SW discussed with her nurse that pt. did not have those items when she was checked in. Pt. reported no hx of psychiatric dx and no visual or auditory hallucinations. Cl reported feeling good and eager to be discharged and expressed anger re loss of her clothes in which SW validated her feelings. Pt. shared she had received mental health tx for 4.5 years and is not currently receiving tx and pt. reported she did not want to receive mental health tx. DC plan: When asked about pt.s plans after being discharged pt. stated she was going to drive back home to [place]. Pt. did not want to provide a person of contact. BARBARA provided pt. with a TAP card with directions to the nearest chcf ([place] [facility] [place], [address], [place] [address]) as well as addiction resources and mental health resources in which pt. accepted them. ADDICTION RESOURCES For Drugs and Alcohol [facility] sober living Referrals For Rehabilitation once sober Address:[address] [place] [address] [facility] [address] [place] [address] Detox/residential [facility] Substance Abuse Helpline ([facility]) Outpatient, residential treatment, recovery support for youth/adults [facility] www.Eat ClubfaSecustream TechnologieslycActivityHero [facility] Teen programs for drug/alcohol education and support Alayna Radford [place]. Program for adults, sliding scale provides support and education [employer] www.[place].org [place]; Detox/residential treatment programs; transition to sober living [facility] www.cri-help.org Avis; Outpatient and residential treatment programs; transition to sober living [facility] TEL: [phone] [facility] Jose Padilla; Outpatient education and supportive programs for teens and adults [facility] www.[facility].org [place]; Residential treatment and work program for females only [facility] www.[facility].org [place]: Outpatient/residential treatment program for teens and young adults [facility] www.[facility].org Jacob Detox, inpatient, outpatient for adults and youth [facility], [facility]. [place]; Outpatient programs and referrals to community residential programs. Alcoholics Anonymous -SFV information and meeting and scheduleswww.aa-intergroup.org Kz-Zlue-Tneywju https://al-anon.org/ [place] support groups for family of alcoholics. Marijuana Anonymous www.madistrict6.org -SFV listing of meetings Narcotics Anonymous www.na.org SOBER LIVING RESOURCES [facility] www.soberhouSupportPay.[employer] A non-profit agency that provides resources to recovery and sober living homes throughout [place] Mens Sober Living Homes: A Work in Progress, [place] [facility], [place] [facility] Le[facility] Sober Living Homes: [facility] [phone], [place] [facility] Sober Living Homes: [facility] Counseling--Outpatient [facility] [address] j[facility] [place] [address] (Specializes in in-depth psychotherapy for emotional distress: anxiety, depression, interpersonal conflicts, life transitions, childhood abuse) [facility] [address] [place] [address] (Assist with solving problem marital difficulties, separation & divorce, aging parents, & grief, chronic & terminal illness) [facility] [address] [place] [address] (Deal with loss & grief, anxiety, marital difficulties) Homebound/Mental Health Services [address], [address] [place] [address] (Provide in-home mental services to people who are incapable of leaving their homes) [facility]eds of the Elderly Senior Service/Resource Center [address] [place] [address] [facility] [address] [place] [address] Mental Health Services Ericka Campos [address] [place] [address] Services: Outpatient therapy for children, teens, young adults, adults, older adults, and families; Psychiatric services, medication support Psychiatric Outpatient Services [facility] Partial Hospitalization and Intensive Outpatient Program (Managed Care and [place] Only)[address] [facility] [phone] [facility] Partial Hospitalization and Outpatient Weynxcp[address] [place], [place] [phone] [facility] [address] [facility]. [address] [place], [place] [phone] [facility] Partial Hospitalization and Outpatient Ukijnbr089[address] [facility], [place], [facility] Jose Padilla, [phone] Crisis and Hotline Telephone Numbers 24-Hour service unless stated [place] Crisis Hotlines: [facility] [facility] Mental Health/Crisis Line........[phone] Suicide Prevention Center (24 Hours).......[phone] Suicide Prevention Crisis Center.......[phone] (24 Hours) Assaults Against Women Hotline.........875.795.3339 (24 Hours -- [facility]) Women and Children Crisis Assisted...........[phone] (24 Hours) Child Abuse Hotline............340.686.1562 [facility] Children[facility] (24 Hours)..........[phone] Alcoholics Anonymous (24 Hours)..........[phone] Cocaine Anonymous (24 Hours)............[phone] Narcotics Anonymous (24 Hours)..........[phone] Maddy Moss [facility] [address] [place] [address]
--- NOTE | 2021-11-27 13:20 | NUR ---
OFFICE SERVICES SPECIALIST NOTES PATIENT ALERT AND VERBALLY RESPONSIVE. DISCHARGE INSTRUCTIONS DONE, CONFIRMED UNDERSTANDING. ALL BELONGINGS RELEASED TO THE PATIENT. PATIENT SIGNED DISCHARGE PAPER WORKS. PATIENT ESCORTED OUTSIDE THE HOSPITAL. Addendum: 11/27/21 at 1324 by EMANUEL SMITH RN IV ACCESS LINE REMOVED AND F/C REMOVED, NO C/O OF PAIN.
== END 2021-11-27 13:00 | disposition home or self-care (01) | DRG 917 ==
LOC: ER 12:39 → ICU 14:09 → MEDSG1 11-24 15:40
PROVIDERS: ADMIT Nurse Practitioner Acute Care; ATTEND Internal Medicine
PROC: 5A1945Z Respiratory Ventilation, 24-96 Consecutive Hours (ICD-10-PCS; principal; 2021-11-20)
PROC: 0BH18EZ Insertion of Endotracheal Airway into Trachea, Via Natural or Artificial Opening Endoscopic (ICD-10-PCS; 2021-11-20)
DX: T50.901A Poisoning by unspecified drugs, medicaments and biological substances, accidental (unintentional), initial encounter (principal); E43 Unspecified severe protein-calorie malnutrition; G92.8 Other toxic encephalopathy; J69.0 Pneumonitis due to inhalation of food and vomit; J96.01 Acute respiratory failure with hypoxia; R64 Cachexia; Z68.1 Body mass index [BMI] 19.9 or less, adult; Y92.89 Other specified places as the place of occurrence of the external cause; Z20.822 Contact with and (suspected) exposure to COVID-19; Y92.410 Unspecified street and highway as the place of occurrence of the external cause; E16.2 Hypoglycemia, unspecified
CPT/HCPCS: 31720; 36415; 36600; 70450-TC; 71045-TC; 80048-TC; 80076-TC; 82140-TC; 82803-TC; 82962-TC; 83735-TC; 84100-TC; 84443-TC; 84484-TC; 84703-TC; 85025-TC; 85730-TC; 87081-TC; 92611-TC; 94002-TC; 94003-TC; 94760-TC; 94799-TC; 99082-TC; C9113; G0378; G0480; J0330; J0692; J1610; J1650; J2310; J3010; J3480; J3490; J7030; J7042; J7050; J7060